=== PATIENT | male | born 1980 | race Two or more races ===

== ENCOUNTER 2021-04-22 15:55 | Emergency (ER) | payer SELFPAY ==
[~2021-04-22] VITALS: Ht 182.9 cm; Wt 77.1 kg
[2021-04-22] MEDS ORDERED: FLUORESCEIN SODIUM OPHTH 1 EA STRIP ONE ×2 (16:28→16:29)
[2021-04-22] MEDS: IV NS 0.9% 1,000 ML BAG IV ONE (16:30)
[2021-04-22 16:45] LABS: BASOPHILS # (AUTO) 0.2 K/uL (0.0-0.2); BASOPHILS % (AUTO) 3.6 % (0.0-2.0); EOSINOPHILS % (AUTO) 1.4 % (0.0-6.0); HEMATOCRIT 35 % (39-51); HEMOGLOBIN 11.1 g/dL (13.5-17.5); LYMPHOCYTES # (AUTO) 1.5 K/uL (0.8-4.8); LYMPHOCYTES % (AUTO) 28.3 % (20.0-44.0); MEAN CORPUSCULAR HGB CONC 32 g/dl (31.0-36.0); MEAN CORPUSCULAR VOLUME 84 fL (80-96); MONOCYTES # (AUTO) 0.5 K/uL (0.1-1.30); MONOCYTES % (AUTO) 9.4 % (2.0-12.0); NEUTROPHILS # (AUTO) 3.1 K/uL (1.8-8.9); NEUTROPHILS % (AUTO) 57.3 % (43.0-81.0); PLATELET COUNT (AUTO) 177 K/uL (150-450); RED BLOOD CELL COUNT(AUTO) 4.11 MIL/uL (4.5-6.0); WHITE BLOOD COUNT (AUTO) 5.4 K/uL (4.3-11.0)
--- NOTE | 2021-04-22 17:04 | NUR ---
TO ER BED 15, [id number] PT C/O EYE/FACIAL PAIN. PT GOT MACED TRYING TO LE A LIQUOR STORE NOT IN CUSTODY
[2021-04-22] MEDS ORDERED: OLANZAPINE 10 MG VIAL IM ONE (17:08)
[2021-04-22] MEDS ORDERED: LORAZEPAM INJ 2 MG/ML VIAL ONE (17:08)
[2021-04-22 17:12] LABS: ALANINE AMINOTRANSFERASE 26 U/L (12-78); ALBUMIN 3.2 g/dL (3.4-5.0); ALKALINE PHOSPHATASE 107 U/L (46-116); ASPARTATE AMINOTRANSFERASE 27 U/L (15-37); BILIRUBIN,DIRECT 0.1 mg/dL (0.0-0.2); BILIRUBIN,TOTAL 0.2 mg/dL (0.2-1.0); CALCIUM, SERUM 8.2 mg/dL (8.5-10.1); CARBON DIOXIDE 25 mmol/L (21-32); CHLORIDE 109 mmol/L (98-107); CREATININE 0.7 mg/dL (0.6-1.3); GLUCOSE 90 mg/dL (74-106); POTASSIUM 3.7 mmol/L (3.5-5.1); SODIUM SERUM 143 mmol/L (136-145); TOTAL PROTEIN, SERUM 6.6 g/dL (6.4-8.2); UREA NITROGEN, BLOOD 17 mg/dL (7-18)
[2021-04-22 17:15] LABS: ACETAMINOPHEN < 2 ug/ml (10-30); ALCOHOL, BLOOD < 3 mg/dL (0-0)
[2021-04-22] MEDS: OLANZAPINE 10 MG VIAL IM ONE (17:33)
[2021-04-22] MEDS: LORAZEPAM INJ 2 MG/ML VIAL IM ONE (17:33)
--- NOTE | 2021-04-22 19:14 | NUR ---
REFUSED EYE FLUSH, AWARE
--- NOTE | 2021-04-22 19:25 | NUR ---
PT REFUSED VISUAL ACUITY TEST
--- NOTE | 2021-04-22 20:30 | NUR ---
PATIENT IN BED RESTING. V/S ARE STABLE. PATIENT NOTED WITH NO ACUTE DISTRESS.
--- NOTE | 2021-04-22 22:35 | NUR ---
URINE SENT TO LAB
[2021-04-22 22:57] LABS: BILIRUBIN,URINE Negative (NEGATIVE); COLOR,URINE YELLOW (YELLOW); LEUKOCYTE ESTERASE ,URINE Negative (NEGATIVE); NITRITE, URINE Positive (NEGATIVE); PH,URINE 6.5 (5.0-8.0); PROTEIN,URINE Negative (NEGATIVE); UGLUCOSE Negative (NEGATIVE); UROBILINOGEN,URINE 0.2 EU/dL (0.2)
[2021-04-22 23:22] LABS: BACTERIA,URINE 3+ /HPF (None Seen); SQUAMOUS EPITHELIAL CELL,UR Few /HPF (None Seen); WBC,URINE NONE SEEN /HPF (0-3)
--- NOTE | 2021-04-22 23:45 | NUR ---
ATTEMPTED TO GET PTS NAME, PT ONLY SCREAMED "I HAVE MANY!" AND REFUSED TO ANSWER QUESTIONS
--- NOTE | 2021-04-23 00:49 | NUR ---
PT ATTACHED TO MONITOR AND POX, VSS
--- NOTE | 2021-04-23 01:30 | NUR ---
attempted to ask pt what his name was, pt refused to answer questions. vss easily arousable
--- NOTE | 2021-04-23 02:30 | NUR ---
attempted to ask name from patient, pt responds "you know its john" and proceeds to mumble his last name. MD santizo
--- NOTE | 2021-04-23 03:45 | NUR ---
pt attached to monitor and pox. Still refusing to give last name
--- NOTE | 2021-04-23 04:15 | NUR ---
pt refuses to give last name. easily arousable. vss
--- NOTE | 2021-04-23 05:22 | NUR ---
pt attached to monitor and pox, vss
--- NOTE | 2021-04-23 06:51 | NUR ---
pt easily arousable, but refuses to give last name
--- NOTE | 2021-04-23 08:24 | NUR ---
The patient is sleeping. Easily responsive to verbal stimuli. Denies pain. In room air and denies SOB. Respiration regular and unlabored. The patient refuses to give his full name. Will continue to monitor the patient.
--- NOTE | 2021-04-23 11:00 | NUR ---
Awake, screaming , using foul mouthed/swearing. Refusing to answer questions and NOT easily directable. Uncooperative. Given Regular diet- tolerated well
--- NOTE | 2021-04-23 12:15 | NUR ---
PT ATE 2 TRAYS OF LUNCH
--- NOTE | 2021-04-23 14:17 | NUR ---
REFUSED TO SIGN ANY DC PAPERS
[2021-04-23 15:14] VITALS: BP 127/72
== END 2021-04-23 15:15 | disposition home or self-care (01) ==
LOC: ER 16:06
DX: F29 Unspecified psychosis not due to a substance or known physiological condition (principal); F15.10 Other stimulant abuse, uncomplicated; N39.0 Urinary tract infection, site not specified; Z77.098 Contact with and (suspected) exposure to other hazardous, chiefly nonmedicinal, chemicals; Z59.0 Homelessness
CPT/HCPCS: 36415; 70450; 80048; 80076; 80143; 80307; 80320; 81001; 85025; 87077; 87086; 87186; 93005; 96372 ×2; 99285; J2060; J3490; J7030; G0480